=== PATIENT | male | born 1950 | race Two or more races ===

== ENCOUNTER → 2018-05-23 | Outpatient (CLI) | payer MEDICARE ==
[2014-02-19 21:24] VITALS: BP 111/62
[~2018-05-23] MED LIST: ASPI-482 PO; CHOL10002 PO; LOSA1TAB19 PO; SIMV20TA3 PO; TAMS0.4C2 PO
--- NOTE | 2018-05-23 11:53 | RAD ---
EXAM: Chest, 2 views. HISTORY: COPD. COMPARISON: 05/04/2017 FINDINGS: 2 views of the chest are obtained. There is no infiltrate, pleural effusion or pneumothorax. There is a stable prominent cardiac silhouette. There are calcified granulomas. IMPRESSION: 1. No acute pulmonary finding. 2. Stable prominent cardiac silhouette and evidence of healed granulomatous disease. Electronically signed by: Arelis Calix MD (05/23/2018 11:50 AM) [id number]
== END | disposition home or self-care (01) ==
LOC: LAB 11:07
PROVIDERS: ATTEND Internal Medicine Critical Care Medicine
DX: J44.9 Chronic obstructive pulmonary disease, unspecified (principal); J84.10 Pulmonary fibrosis, unspecified
CPT/HCPCS: 71046